=== PATIENT | female | born 1935 | race Caucasian/White ===

== ENCOUNTER 2016-04-14 17:17 | Emergency (ER) | payer MEDICARE, OTHER | END 2016-04-14 18:41 | disposition home or self-care (01) | LOC: FER 17:17 | DX: S50.01XA Contusion of right elbow, initial encounter (principal); S40.011A Contusion of right shoulder, initial encounter; I10 Essential (primary) hypertension; Z79.82 Long term (current) use of aspirin; Z91.041 Radiographic dye allergy status; W18.31XA Fall on same level due to stepping on an object, initial encounter; Y92.481 Parking lot as the place of occurrence of the external cause | CPT/HCPCS: 73030; 73060; 73080; 73110; 99283 ==

== ENCOUNTER 2016-07-22 16:54 | Emergency (ER) | payer MEDICARE, OTHER ==
[2016-07-22 17:25] LABS: BASOPHIL 0.4 % (0-2); EOSINOPHIL 5.1 % (0-7); HGB 12.5 g/dl (12.5-16.0); LYMPHOCYTE 17.6 % (15-48); MCH 31.7 pg (25.0-31.0); MCHC 33.8 g/dL (32.0-36.0); MCV 93.9 fL (78.0-100.0); NEUTROPHIL 67.9 % (41-80); PLT 338 K/uL (150-400); RBC 3.94 M/uL (4.20-5.40); RDW 13.7 % (11.5-14.0); WBC 10.5 K/uL (4.0-10.5)
[2016-07-22 17:37] LABS: INR 1.09 (0.9-1.2); PROTHROMBIN TIME 13.7 SECONDS (11.7-14.0); PTT 30.2 SECONDS (23.2-31.4)
[2016-07-22 17:48] LABS: ALBUMIN 3.9 g/dL (3.4-4.8); BILIRUBIN - TOTAL 0.6 mg/dL (0.1-1.0); CREATININE 1.4 mg/dL (0.5-1.0); GLOBULIN (CALCULATION) 2.7 g/dL (2.2-4.2); MAGNESIUM 2.11 mg/dL (1.40-2.10); POTASSIUM 3.8 mmol/L (3.5-5.1); TOTAL PROTEIN 6.6 g/dL (6.4-8.3)
[2016-07-22 17:55] LABS: CKMB 2.54 ng/mL (0.97-4.94); MYOGLOBIN 104 ng/mL (26-65); TROPONIN T < 0.010 ng/mL
[2016-07-22 17:56] LABS: PRO-BNP 726 pg/mL (0-450)
== END 2016-07-22 20:27 | disposition home or self-care (01) ==
LOC: FER 16:54
PROVIDERS: Emergency Medicine
DX: R07.9 Chest pain, unspecified (principal); I49.3 Ventricular premature depolarization; I10 Essential (primary) hypertension; K21.9 Gastro-esophageal reflux disease without esophagitis; F03.90 Unspecified dementia, unspecified severity, without behavioral disturbance, psychotic disturbance, mood disturbance, and anxiety; Z86.73 Personal history of transient ischemic attack (TIA), and cerebral infarction without residual deficits; Z91.041 Radiographic dye allergy status; Z79.82 Long term (current) use of aspirin; Z79.899 Other long term (current) drug therapy
CPT/HCPCS: 36415; 71010; 80053; 82550; 82553; 83735; 83874; 83880; 84484; 85025; 85610; 85730; 93005